=== PATIENT | male | born 1970 | race Caucasian/White ===

== ENCOUNTER 2020-03-05 09:50 | Day surgery (SDC) | payer BC ==
[~2020-03-05 09:50] MED LIST: Metoclopramide 10 MG/2 ML SDV IV PRN; Sodium Chloride 0.9% 1,000 ML IV SCH
[2020-03-05] MEDS ORDERED: Propofol 1,000 MG/100 ML SDV ONE (12:45)
--- NOTE | 2020-03-05 14:01 | OR ---
DATE OF OPERATION: 03/05/2020 SURGEON: Arsalan Ratliff MD PREOPERATIVE DIAGNOSIS: Screening colonoscopy. POSTOPERATIVE DIAGNOSIS: Screening colonoscopy. PROCEDURE: Colonoscopy. ANESTHESIA: MAC. ESTIMATED BLOOD LOSS: None. COMPLICATIONS: None. INDICATION FOR THE PROCEDURE: The patient is a 49-year-old male, here today for his first colonoscopy. Denies any change in bowel habits. Denies any family history of colon cancer. DESCRIPTION OF PROCEDURE: Informed consent was obtained from the patient. The patient was taken to the operating room, placed on table in left lateral decubitus position. Monitored anesthesia care was administered. Digital rectal exam was performed, it was normal. Colonoscope was then advanced through the anus directed towards the cecum. I was able to reach the far end of the sigmoid colon. He did have moderate large and small diverticulosis throughout. Unable to get out of the sigmoid with adult colonoscope. Adult colonoscope was then withdrawn. Peds colonoscope was then advanced. I was able to reach the cecum with the peds scope. Cecum was reached by and identified by appendiceal orifice and ileocecal valve. Colonoscope then slowly withdrawn. Aside from the diverticulosis previously noted, no other abnormalities noted. No polyps, no masses. No areas of ischemia or inflammation noted. Colonoscope then withdrawn. Rectum was also otherwise unremarkable. Colonoscope was then fully withdrawn. FINDINGS: Moderate sigmoid diverticulosis. RECOMMENDATIONS: Recommend plenty of water, high-fiber diet for his diverticulosis. Avoid straining and would recommend repeat screening colonoscopy in 10 years. FABY/SHERITA /[id number]
== END 2020-03-05 13:53 | disposition home or self-care (01) ==
LOC: LB.SDS 09:50
PROVIDERS: ATTEND Surgery
DX: Z12.11 Encounter for screening for malignant neoplasm of colon (principal); K57.30 Diverticulosis of large intestine without perforation or abscess without bleeding; I25.2 Old myocardial infarction; N39.0 Urinary tract infection, site not specified; I10 Essential (primary) hypertension; Z79.82 Long term (current) use of aspirin; Z79.899 Other long term (current) drug therapy
CPT/HCPCS: J2704; J7030

== ENCOUNTER 2024-09-09 19:07 | Emergency (ER) | payer OTHER ==
[2024-09-09] MEDS: EPINEPHrine 0.3 MG/0.3 ML Pen Autoinjector IM ONE (19:13)
[2024-09-09] MEDS: diphenhydrAMINE 50 MG/ML SDV IVPUSH ONE (19:20)
[2024-09-09] MEDS: methylPREDNISolone Sodium Succinate 125 MG/2 ML SDV IVPUSH ONE (19:23)
[2024-09-09] MEDS: Albuterol 0.083% 2.5 MG/3 ML Neb Soln NEB ONE (19:27)
[2024-09-09] MEDS ORDERED: Sodium Chloride 0.9% 10 ML Syringe FLUSH PRN (20:34)
== END 2024-09-09 20:03 | disposition home or self-care (01) ==
LOC: LB.ED 19:07
DX: T63.441A Toxic effect of venom of bees, accidental (unintentional), initial encounter (principal); I25.2 Old myocardial infarction; Z95.5 Presence of coronary angioplasty implant and graft; Z79.899 Other long term (current) drug therapy; Z79.82 Long term (current) use of aspirin
CPT/HCPCS: 94640; 96372; 96374; 96375; 99283; A9270; J1200; J2919; J7512; J7613